=== PATIENT | female | born 1990 | race Hispanic/Latino ===

== ENCOUNTER 2021-09-10 19:08 | Emergency (ER) | payer SELFPAY ==
[2021-09-10 19:22] VITALS: BP 133/68; PULSE 70; RESP 18; TEMP 36.6; O2SAT 99; BMI 29.1
--- NOTE | 2021-09-10 19:22 | DI.RAD.S_ITS ---
PROCEDURE: XR KNEE LT 3V INDICATIONS: fall TECHNIQUE: 3 views of the knee were acquired. COMPARISON: None. FINDINGS: Bones: No fractures or dislocations. No suspicious bony lesions. Soft tissues: No joint effusion. No suspicious soft tissue calcifications. IMPRESSION: No fracture. No osseous lesion. If symptoms and/or clinical suspicion for pathology persists, further assessment with repeat radiographs (7-10 days) or advanced imaging (e.g. CT, MRI or bone scan) should be considered. Dictated by: Carol Hgaer MD, PhD on 09/10/2021 at 19:51 Approved by: Carol Hager MD, PhD on 09/10/2021 at 19:52
--- NOTE | 2021-09-10 20:00 | ED.LOWEXIN ---
HPI - Extremity Injury (Lower) <Jabari Patel PA-C - Last Filed: 09/10/21 20:21> General Chief Complaint: Extremity Injury, Lower Stated Complaint: fell on left knee cant walk Time Seen by Provider: 09/10/21 19:13 Source: patient Mode of arrival: Wheelchair History of Present Illness HPI Narrative: Patient is a 30-year-old female presents to the emergency department today for evaluation of the left knee injury. Patient states that she was walking in her yard when she slipped on wet grass 2 nights ago. She states that she has experienced consistent left knee pain since the injury, noting that it is gradually worsened over past 48 hours. She explains that she has had difficulty putting any weight on the left lower extremity and reports that the left knee feels ?unstable?. Of note, patient states she did not hit her head or lose consciousness as result of the fall. Additionally, she denies injury or pain elsewhere. No fever, chills, chest pain, cough, shortness of breath, nausea, vomiting, diarrhea, dysuria, hematuria, abdominal pain, or any other concerning symptoms reported. No further concerns were voiced at this time. Related Data Previous Rx's Medication Instructions Recorded oxycodone 5 mg tablet 5 mg PO Q8H PRN #10 tab 09/10/21 Allergies Allergy/AdvReac Type Severity Reaction Status Date / Time ibuprofen AdvReac Verified 09/10/21 19:25 Review of Systems <Jabari Patel PA-C - Last Filed: 09/10/21 20:21> Constitutional Constitutional: Denies chills, Denies fatigue, Denies fever(s), Denies frequent falls, Denies lethargy and Denies weakness ENT Ears, Nose, Mouth, and Throat: Denies neck pain Cardiovascular Cardiovascular: Denies chest pain, Denies irregular heart rhythm, Denies lightheadedness, Denies palpitations, Denies dyspnea, Denies dyspnea on exertion and Denies orthopnea Respiratory Respiratory: Denies cough, Denies dyspnea, Denies dyspnea on exertion and Denies wheezing Gastrointestinal Gastrointestinal: Denies abdominal pain, Denies change in bowel habits, Denies diarrhea, Denies nausea and Denies vomiting Genitourinary Genitourinary: Denies hematuria, Denies flank pain, Denies urinary incontinence and Denies urinary urgency Musculoskeletal Musculoskeletal: Denies back pain, Reports arthralgias (Left knee), Reports joint swelling (Left knee), Denies muscle weakness, Denies neck pain, Denies numbness and Denies tingling Integumentary/Breasts Skin/Breast: Denies pruritus, Denies erythema, Denies rash and Denies wounds Neurologic Neurologic: Denies frequent falls, Denies numbness, Denies tingling and Denies weakness Endocrine Endocrine: Denies fatigue and Denies palpitations Allergic/Immunologic Allergic/Immunologic: Denies wheezing Patient History <Jabari Patel PA-C - Last Filed: 09/10/21 20:21> Social History Smoking Status: Never smoker Smoking Status: Never smoker alcohol intake frequency: a few times a week Substance Use Type: marijuana Exam <Jabari Patel PA-C - Last Filed: 09/10/21 20:21> Narrative Exam Narrative: GENERAL: 30 year old patient appears stated age. Well-developed patient, in no acute distress. HEAD: Atraumatic. Normocephalic. EYES: Pupils equal round and reactive. Extraocular motions intact. No scleral icterus. No injection or drainage. ENT: Nose without bleeding, purulent drainage. Throat without erythema, tonsillar hypertrophy or exudate. Airway patent. NECK: Trachea midline. Non tender CARDIOVASCULAR: Regular rate and rhythm without murmurs, gallops, or rubs. RESPIRATORY: Clear to auscultation. Breath sounds equal bilaterally. No wheezes, rales, or rhonchi. GASTROINTESTINAL: Abdomen soft, non-tender, nondistended. EXTREMITIES: No edema. Tenderness to palpation appreciated generally about the left knee with significant midline joint tenderness. No crepitance or gross deformity appreciated. Negative anterior and posterior drawer. Negative Du test. No significant popliteal fullness. Good sensation light touch appreciated throughout the bilateral lower extremities. Gross motor function intact throughout the bilateral lower extremities. BACK: Nontender without deformity or crepitance. No flank tenderness. NEURO: AOx3. SKIN: No rash or erythema of visible areas Initial Vital Signs Initial Vital Signs: Vital Signs Temperature 98 F 09/10/21 19:22 Pulse Rate 70 09/10/21 19:22 Respiratory Rate 18 09/10/21 19:22 Blood Pressure 133/68 09/10/21 19:22 Pulse Oximetry 99 09/10/21 19:22 <DO Eriberto Bhat Last Filed: 09/10/21 21:01> Initial Vital Signs Initial Vital Signs: Vital Signs Temperature 98 F 09/10/21 19:22 Pulse Rate 70 09/10/21 19:22 Respiratory Rate 18 09/10/21 19:22 Blood Pressure 133/68 09/10/21 19:22 Pulse Oximetry 99 09/10/21 19:22 Course <Jabari Patel PA-C - Last Filed: 09/10/21 20:21> Course Course Narrative: X-ray of left knee obtained. Orders Ordered: ED Orders 09/10/21 19:22 XR knee LT 3V Stat Discontinued Medications Oxycodone HCl (Oxycodone Ir 5 Mg Tablet) 5 mg PO NOW ONE Stop: 09/10/21 20:01 Last Admin: 09/10/21 20:35 Dose: 5 mg Documented by: CASSIUS Vital Signs Vital signs: Vital Signs - 8 hr 09/10/21 19:22 Temperature 98 F Pulse Rate 70 Respiratory Rate 18 Blood Pressure 133/68 Pulse Oximetry 99 <DO Eriberto Bhat Last Filed: 09/10/21 21:01> Orders Ordered: ED Orders 09/10/21 19:22 XR knee LT 3V Stat Discontinued Medications Oxycodone HCl (Oxycodone Ir 5 Mg Tablet) 5 mg PO NOW ONE Stop: 09/10/21 20:01 Last Admin: 09/10/21 20:35 Dose: 5 mg Documented by: CASSIUS Vital Signs Vital signs: Vital Signs - 8 hr 09/10/21 19:22 Temperature 98 F Pulse Rate 70 Respiratory Rate 18 Blood Pressure 133/68 Pulse Oximetry 99 MDM - Extremity Injury (Lower) <CHARLEY Dee Last Filed: 09/10/21 20:21> Imaging Data Extremity x-ray #1: Radiologist's Impression: ROCEDURE:? XR KNEE LT 3V ? INDICATIONS:? fall ? TECHNIQUE:? 3 views of the knee were acquired.? ? COMPARISON:? None. ? FINDINGS:? ? Bones:? No fractures or dislocations.? No suspicious bony lesions.? ? Soft tissues:? No joint effusion.? No suspicious soft tissue calcifications.? ? ? IMPRESSION:? No fracture. No osseous lesion. If symptoms and/or clinical suspicion for pathology persists, further assessment with repeat radiographs (7-10 days) or advanced imaging (e.g. CT, MRI or bone scan) should be considered. ? ? Dictated by: Carol Hager MD, PhD on 09/10/2021 at 19:51 ? ? Approved by: Carol Hager MD, PhD on 09/10/2021 at 19:52? MDM Narrative Medical decision making narrative: Differential diagnosis to consider but not limited to fracture versus dislocation versus sprain versus strain. X-ray results left knee obtained the emergency department today showed no signs of acute bony abnormality. I discussed these results with the patient informed her that it is important to follow-up with orthopedic surgery for further evaluation and imaging of the left knee. She was placed in a knee immobilizer prior to discharge and was provided a short course of medications help alleviate her discomfort. Patient expresses understanding and agrees to plan. She states at this time she is comfortable being discharged home is stable for discharge. Strict return precautions were discussed with the patient prior to discharge. Discharge Plan Departure Patient Disposition: Home Clinical Impression: Acute pain of left knee Instructions: DI for Knee Pain Activity Restrictions/Additional Instructions: *You have been diagnosed with left knee pain *What to do: *Please continue to take your regular medications as directed. [ ] New medication prescriptions sent to your pharmacy: [ ] [X] New medication written as a paper prescription - Oxycodone [ ] No new medications given You were evaluated in the emergency department today for a left knee injury. X-ray imaging obtained in the emergency department today did not show signs of acute bony abnormality. Have set up a referral free to follow-up with training specialist further evaluation of your left knee injury. Further imaging may be necessary in order to identify any soft tissue damage. I have prescribed you a short course of medications to help alleviate your discomfort, please use them only for severe pain. Please follow-up with the primary care provider within the next to 3 days for further evaluation. You were placed in a knee immobilizer prior to discharge to help stabilize the knee and provide additional comfort. Do not hesitate to return to the emergency department if you experience worsening pain, numbness and tingling in the lower extremities, fever, or any other concerning symptoms. *Please follow up with your primary care provider in 2-3 days, call for an appointment. Let them know you were seen in the Emergency Department and that we ask that you be seen in follow up. We will electronically transmit a record of today's note if your PCP is in our system *If you do not have a primary care provider please contact the [facility] Resource line at [phone]. They will ask some questions about your medical history and help get you set up with a doctor in the community. *Return to Emergency Department if you should have any new, worsening or concerning symptoms, such as fever greater than 101 F, shaking chills, worsening pain, persistent vomiting or other bothersome symptoms. Prescriptions: New oxycodone 5 mg tablet 5 mg PO Q8H PRN (Reason: pain) Qty: 10 0RF Referrals: Bina Isaac MD [Physician] - 5-7 days <Amilcar Morales DO - Last Filed: 09/10/21 21:01> [facility]: Dr Morales Co-Sign Statement: I was available for consultation during this patient's emergency department visit. This chart is signed by myself for administrative purposes only. I did not have direct contact with this patient during this visit. They were seen independently by the APC.
[2021-09-10] MEDS: OXYCODONE IR 5 MG TABLET PO (20:35)
== END 2021-09-10 20:52 | disposition home or self-care (01) ==
PROVIDERS: Emergency Provider Physician Assistant
DX: M25.562 Pain in left knee (principal)
CPT/HCPCS: 29530; 73562; 99283

== ENCOUNTER 2024-04-17 09:48 | Emergency (ER) | payer BC, SELFPAY ==
[2024-04-17 09:49] VITALS: BP 167/85; PULSE 70; RESP 16; TEMP 36.7; O2SAT 97; BMI 29.9
--- NOTE | 2024-04-17 09:59 | DI.US.S_ITS ---
PROCEDURE: US OB <= 14 WEEKS FETUS INDICATIONS: ABDOMEN/PELVIC PAIN OUTSIDE/PRIOR DATING DATA: Last menstrual period (LMP): 03/11/2024. LMP-based estimated date of delivery (ELIAN): 12/16/2024. First dating scan (date and location): 04/17/2024. Estimated date of delivery (ELIAN) from first dating scan: Not applicable TECHNIQUE: Real-time scanning was performed of the fetus and maternal pelvic organs, with image documentation. Endovaginal scanning was also performed to better visualize the fetus and maternal ovaries. COMPARISON: None. FINDINGS: An intrauterine gestational sac is identified with a mean sac diameter of 0.5 cm for an estimated gestational age of 5 weeks and 2 days. There is nonvisualization of a yolk sac , pole, or cardiac activity at this time. Small perigestational hemorrhage. The left ovary is within normal limits. Probable 1.7 cm right corpus luteal cyst. Small amount of free fluid around the right adnexal region. IMPRESSION: 1. Findings likely indicative of an early, intrauterine with an estimated gestational age of 5 weeks and 2 days. Continued pelvic ultrasound and beta hCG measurement follow-up recommended. 2. Small right 1.7 cm corpus luteal ovarian cyst. We strive to produce accurate, complete, and clear reports of imaging services. To assist us in improving patient care, this report was composed using standard report templates and voice recognition software. Therefore, it may contain abnormal punctuation, insertions and/or omissions. Occasional wrong-word or sound-alike substitutions may occur. Though we review the report and make efforts to correct it, we do recommend that the report be read carefully in proper context to recognize any text inaccuracies. Dictated by: Hua Ponce M.D. on 04/17/2024 at 11:10 Approved by: Hua Ponce M.D. on 04/17/2024 at 11:18
--- NOTE | 2024-04-17 10:05 | ED_ITS ---
HPI - Abdominal Pain General Chief Complaint: Abdominal Pain Stated Complaint: , abd sharp pain Time Seen by Provider: 04/17/24 10:02 Source: patient Mode of arrival: Ambulatory History of Present Illness HPI narrative: 33-year-old female SAb0 obstetrical history, with last menstrual period 03/11/2024, recent home test positive, he has not had care this current , now with diffuse abdominal pain, not particularly low, not particularly right versus left, since early this morning. She has had difficulty was with bowel movement, using ozfv-pfd-jfwewkw powder medication laxative, last bowel movement yesterday, no black or red stools, no hard stools. She has not having vaginal bleeding. She has not had passage of tissue. She has not having painful urination or frequency of urination. No flank pain. No cough shortness of breath. No injury trauma new activities. She has not had imaging this Related Data Previous Rx's Medication Instructions Recorded oxycodone 5 mg tablet 5 mg PO Q8H PRN pain #10 tabs 09/10/21 Allergies Allergy/AdvReac Type Severity Reaction Status Date / Time ibuprofen AdvReac Verified 04/17/24 09:56 Review of Systems Review of Systems Narrative: see HPI Patient History Social History Smoking Status: Never smoker Smoking Status: Never smoker alcohol intake frequency: a few times a week Substance Use Type: marijuana Exam Narrative Exam Narrative: GENERAL: Well-developed patient, in mild distress. HEAD: Atraumatic. Normocephalic. EYES: Pupils equal round and reactive. Extraocular motions intact. No scleral icterus. No injection or drainage. ENT: Nose without bleeding, purulent drainage. Throat without erythema, tonsillar hypertrophy or exudate. Airway patent. NECK: Trachea midline. Non tender CARDIOVASCULAR: Regular rate and rhythm without murmurs, gallops, or rubs. RESPIRATORY: Clear to auscultation. Breath sounds equal bilaterally. No wheezes, rales, or rhonchi. GASTROINTESTINAL: Abdomen soft, non-tender, nondistended. EXTREMITIES: No edema or joint tenderness. BACK: Nontender without deformity or crepitance. No flank tenderness. NEURO: AOx3. Motor functions grossly nonfocal SKIN: No rash or erythema of visible areas Initial Vital Signs Initial Vital Signs: Vital Signs Temperature 98.0 F 04/17/24 09:49 Pulse Rate 70 04/17/24 09:49 Respiratory Rate 16 04/17/24 09:49 Blood Pressure 167/85 H 04/17/24 09:49 Pulse Oximetry 97 04/17/24 09:49 Oxygen Delivery Method Room Air 04/17/24 09:49 Course Orders Ordered: ED Orders 04/17/24 09:59 US OB <= 14 weeks fetus Stat 04/17/24 10:11 Complete Blood Count AUTO DIFF Stat Comprehensive Metabolic Panel Stat HCG Quantitative /Beta subunit Stat Type and Screen Stat Vital Signs Vital signs: Vital Signs - 8 hr 04/17/24 09:49 Temperature 98.0 F Pulse Rate 70 Respiratory Rate 16 Blood Pressure 167/85 H Pulse Oximetry 97 Oxygen Delivery Method Room Air MDM - Abdominal Pain Lab Data Attestation: I reviewed the patient's lab results. 04/17/24 10:11 04/17/24 10:11 Labs: Lab Results 04/17/24 Range/Units 10:11 WBC 11.6 H (4.5-11.0) X10^3/uL RBC 4.41 (4.0-5.2) X10^6/uL Hgb 13.7 (12.0-16.0) g/dL Hct 40.4 (36-46) % MCV 91.6 (80-100) fL MCH 31.2 (26-34) PG MCHC 34.0 (30-36) % RDW 12.7 (11.6-14.8) % Plt Count 304 (150-400) X10^3/uL Neut % (Auto) 77.1 H (50-75) % Lymph % (Auto) 16.5 L (25-40) % [place] % (Auto) 5.0 (3-14) % Eos % (Auto) 1.0 L (2-4) % Baso % (Auto) 0.4 (0-2) % Neut # (Auto) 9000 H (3195-5954) /uL Lymph # (Auto) 1900 (9704-0675) /uL [place] # (Auto) 600 (0-900) /uL Eos # (Auto) 100 (0-450) /uL Baso # (Auto) 0 (0-100) /uL Sodium 133 L (137-145) mmol/L Potassium 3.9 (3.4-5.1) mmol/L Chloride 103 (98-107) mmol/L Carbon Dioxide 23 (22-32) mmol/L BUN 7 (7-17) mg/dL Creatinine 0.57 (0.52-1.04) mg/dL Estimated GFR > 60 (>60) mL/min BUN/Creatinine Ratio 12.3 (6-22) Glucose 186 H (70-100) mg/dL Calcium 9.2 (8.4-10.2) mg/dL Total Bilirubin 0.8 (0.2-1.3) mg/dL AST 46 H (14-36) IU/L ALT 55 H (<35) IU/L Alkaline Phosphatase 76 (38-126) U/L Total Protein 7.0 (6.3-8.2) g/dL Albumin 4.3 (3.5-5.0) g/dL Globulin 2.7 (1.7-4.1) g/dL Albumin/Globulin Ratio 1.6 (1.0-2.8) HCG, Quant 3245.9 mIU/mL Blood Type O Positive Antibody Screen Negative Point of care testing: Point of Care Testing Test Results Positive Urine Dip Bedside Urine Glucose 500 mg/dl Bedside Urine Bilirubin - Negative Bedside Urine Ketone - Negative Urine Specific [place] 1.020 Bedside Urine Occult Blood - Negative Bedside Urine pH 6.0 Bedside Urine Protein - Negative Bedside Urine Urobilinogen - Negative Bedside Urine Nitrite - Negative Bedside Urine Leukocytes - Negative Esterase Imaging Data Pelvic ultrasound: Radiologist's Impression: [address] [address] Ultrasound Report Signed Patient: Yin Cooley MR#: [id number] : 1990 Acct:[id number] Age/Sex: 33 / F Date of Service: 04/17/24 Loc: ED Accession Number: [id number] Procedure: US OB <= 14 weeks fetus Ordering Provider: Rustam Reis MD PROCEDURE: US OB <= 14 WEEKS FETUS INDICATIONS: ABDOMEN/PELVIC PAIN OUTSIDE/PRIOR DATING DATA: Last menstrual period (LMP): 03/11/2024. LMP-based estimated date of delivery (ELIAN): 12/16/2024. First dating scan (date and location): 04/17/2024. Estimated date of delivery (ELIAN) from first dating scan: Not applicable TECHNIQUE: Real-time scanning was performed of the fetus and maternal pelvic organs, with image documentation. Endovaginal scanning was also performed to better visualize the fetus and maternal ovaries. COMPARISON: None. FINDINGS: An intrauterine gestational sac is identified with a mean sac diameter of 0.5 cm for an estimated gestational age of 5 weeks and 2 days. There is nonvisualization of a yolk sac , pole, or cardiac activity at this time. Small perigestational hemorrhage. The left ovary is within normal limits. Probable 1.7 cm right corpus luteal cyst. Small amount of free fluid around the right adnexal region. IMPRESSION: 1. Findings likely indicative of an early, intrauterine with an estimated gestational age of 5 weeks and 2 days. Continued pelvic ultrasound and beta hCG measurement follow-up recommended. 2. Small right 1.7 cm corpus luteal ovarian cyst. We strive to produce accurate, complete, and clear reports of imaging services. To assist us in improving patient care, this report was composed using standard report templates and voice recognition software. Therefore, it may contain abnormal punctuation, insertions and/or omissions. Occasional wrong-word or sound-alike substitutions may occur. Though we review the report and make efforts to correct it, we do recommend that the report be read carefully in proper context to recognize any text inaccuracies. Dictated by: Hua Ponce M.D. on 04/17/2024 at 11:10 Approved by: Hua Ponce M.D. on 04/17/2024 at 11:18 MDM Narrative Medical decision making narrative: 33-year-old female with home test positive, possible early with diffuse abdominal pain, no external vaginal bleeding. DDx consider ectopic , ovarian cyst, PID, TOA, UTI, non-hand meat salter related pain such as constipation, other. Urine test was positive, we order serum hCG quantitative, also ABO/Rh. Urine dip negative for blood/leukocytes. Ultrasound pelvis requested. Keep NPO for now. Patient appears comfortable, no pad medications needed at this time. Serum hCG 3245 noted. Blood type O positive Ultrasound shows intrauterine 5 weeks gestational sac, some inflammation/hemorrhage surrounding, possible implantation changes versus other, sono tech report. Possible right corpus luteum cyst, otherwise no abnormal masses, scant free fluid. Await Radiology report. Patient informed of preliminary information. Pelvic ultrasound radiology reading, also confirms intrauterine gestational sac 5 weeks 2 days size, small right 1.7 cm corpus luteal ovarian cyst also noted. See radiology report. Radiology report discussed with patient, possible component pain by constipation symptoms as described, consider prunes/juice more natural methods of treating this. It is possible that the ovarian corpus luteum cyst could be a cause of some discomfort, not obviously ruptured or bleeding, no torsion found. Advised recheck Sunday for repeat hormone level, which hopefully we will be increasing in reassuring. Take Tylenol as needed for discomfort. Contact information given for OB provider on-call Dr. Gilbert. Return precautions discussed. Home with family. Discharge Plan Departure Patient Disposition: Home Clinical Impression: Abdominal pain, Constipation, , Ovarian cyst Activity Restrictions/Additional Instructions: Current early , last menstrual period 03/11/2024, home test positive, reconfirmed positive today as well, with abdominal pain, symptoms suspicious for constipation, possible use of powder rrll-qoc-[id number] laxative, last bowel movement yesterday. No vaginal bleeding symptoms. No imaging yet this before arrival. Ultrasound showed intrauterine gestational sac, small corpus luteal cyst in 1 of the ovaries also noted. It is possible you have an early , is also possible to have a early demise, unclear at this stage. Sometimes repeat hormone levels in the next 48-72 hours can help distinguish, as the hormone levels at this stage of usually double in this timeframe. Consider repeat blood draw Sunday with your care provider. Local funeral home manager contact information also provided. Small right ovarian corpus luteum cyst also noted on your ultrasound, this is fairly small, was not obviously bleeding or involuting, unclear if this is related to your current discomfort, although sometimes ovarian cysts can be painful. There was good blood flow to both ovaries on the ultrasound study. It is very possible you happened to have an early and unrelated abdominal pain, perhaps due to constipation. I do not know safety profile of dywy-zov-khgkuhu powder laxative medication in . Consider more natural use like prune juice or prunes to move your bowels if you can tolerate this. Follow up with your obstetrics provider Sunday for further testing. Return to this/nearest emergency department for any change worsening symptoms or any concerns prior Prescriptions: No Action oxycodone 5 mg tablet 5 mg PO Q8H PRN (Reason: pain) Qty: 10 0RF Referrals: Kole Gilbert MD [Physician] - Stand Alone Forms: Patient Portal/API
[2024-04-17 10:22] LABS: Add Manual Diff / Slide Review NO; Basophils Absolute Auto 0 /uL (0-100); Basophils Percent Auto 0.4 % (0-2); Eosinophils Absolute Auto 100 /uL (0-450); Hematocrit 40.4 % (36-46); Hemoglobin 13.7 g/dL (12.0-16.0); Lymphocytes Absolute Auto 1900 /uL (1100-4500); Lymphocytes Percent Auto 16.5 % (25-40); Mean Corpuscular Hemoglobin 31.2 PG (26-34); Mean Corpuscular Volume 91.6 fL (80-100); Monocytes Absolute Auto 600 /uL (0-900); Neutrophils Absolute Auto 9000 /uL (1500-7000); Neutrophils Percent Auto 77.1 % (50-75); Platelet Count 304 X10^3/uL (150-400); Red Blood Cell Count 4.41 X10^6/uL (4.0-5.2); Red Cell Distribution Width 12.7 % (11.6-14.8); White Blood Cell Count 11.6 X10^3/uL (4.5-11.0)
[2024-04-17 10:41] LABS: Alanine Aminotransferase 55 IU/L (<35); Albumin 4.3 g/dL (3.5-5.0); Albumin Globulin Ratio 1.6 (1.0-2.8); Alkaline Phosphatase 76 U/L (38-126); Aspartate Aminotransferase 46 IU/L (14-36); BUN Creatinine Ratio 12.3 (6-22); Bilirubin Total 0.8 mg/dL (0.2-1.3); Blood Urea Nitrogen 7 mg/dL (7-17); Calcium 9.2 mg/dL (8.4-10.2); Carbon Dioxide 23 mmol/L (22-32); Chloride 103 mmol/L (98-107); Estimated Glomerular Filt Rate > 60 mL/min (>60); Globulin 2.7 g/dL (1.7-4.1); Glucose 186 mg/dL (70-100); HEMOLYSIS < 15 (0-50); Potassium 3.9 mmol/L (3.4-5.1); Sodium 133 mmol/L (137-145)
[2024-04-17 10:58] LABS: HCG Quantitative /Beta subunit 3245.9 mIU/mL
[2024-04-17 12:24] VITALS: BP 127/62; PULSE 61; RESP 16; O2SAT 98
[2024-04-17 12:41] VITALS: BP 122/65
== END 2024-04-17 12:42 | disposition home or self-care (01) ==
PROVIDERS: Emergency Provider Emergency Medicine
DX: O34.81 Maternal care for other abnormalities of pelvic organs, first trimester (principal); N83.11 Corpus luteum cyst of right ovary; R10.9 Unspecified abdominal pain; K59.00 Constipation, unspecified; Z3A.01 Less than 8 weeks gestation of pregnancy
CPT/HCPCS: 36415; 76801; 76817; 80053; 81003; 81025; 84702; 85025; 86850; 86900; 86901; 99283; 99284

== ENCOUNTER → 2024-04-25 12:00 | Outpatient (CLI) | payer BC, SELFPAY ==
--- NOTE | 2024-04-25 12:01 | DI.US.S_ITS ---
PROCEDURE: US OB <= 14 WEEKS FETUS INDICATIONS: VIABILITY FOLLOW UP OUTSIDE/PRIOR DATING DATA: Last menstrual period (LMP): 03/11/24. LMP-based estimated date of delivery (ELIAN): 12/16/24. First dating scan (date and location): 04/25/24. Estimated date of delivery (ELIAN) from first dating scan: 12/19/24. TECHNIQUE: Real-time scanning was performed of the fetus and maternal pelvic organs, with image documentation. Endovaginal imaging was performed. COMPARISON: [facility], OB <= 14 WEEKS FETUS, 04/17/2024, 9:59. FINDINGS: An intrauterine is present including a single pole with an average crown-rump length of 3.6 mm corresponding to a six week 0 day plus or minus four day gestation. There is detectable cardiac activity in the fetus at a rate of 114 beats per minute. A normal yolk sac is present. A small irregular implantation bleed encompassing less than 10% of the sac circumference measures up to 1.3 cm in maximal diameter. No other significant perigestational fluid collection. The maternal uterus is anteverted. The cervix is closed. There is no pathologic free pelvic fluid. There is a peripherally vascular corpus luteum on the right ovary. IMPRESSION: Single living intrauterine with sonographic gestational age of six weeks 0 days plus or minus four days, in good agreement with the clinical gestational age. Trace, presumably resolving subchorionic hemorrhage/implantation bleed. We strive to produce accurate, complete, and clear reports of imaging services. To assist us in improving patient care, this report was composed using standard report templates and voice recognition software. Therefore, it may contain abnormal punctuation, insertions and/or omissions. Occasional wrong-word or sound-alike substitutions may occur. Though we review the report and make efforts to correct it, we do recommend that the report be read carefully in proper context to recognize any text inaccuracies. Dictated by: Sabrina Quintana M.D. on 04/25/2024 at 15:36 Approved by: Sabrina Quintana M.D. on 04/25/2024 at 16:06
[2024-04-25 15:18] LABS: HCG Quantitative /Beta subunit 14967 mIU/mL
== END ==
PROVIDERS: Referring Provider Obstetrics & Gynecology; Visit Provider Obstetrics & Gynecology
DX: O20.0 Threatened abortion (principal)
CPT/HCPCS: 36415; 76801; 76817; 84702

== ENCOUNTER → 2024-06-12 15:50 | Outpatient (CLI) | payer BC, OTHER, MEDICAID, SELFPAY ==
[2024-06-12 21:52] LABS: Urine N gonorrhoeae NOT DETECTED
[2024-06-12 22:24] LABS: Urine Chlamydia NOT DETECTED
== END ==
PROVIDERS: Visit Provider Obstetrics & Gynecology
DX: Z11.3 Encounter for screening for infections with a predominantly sexual mode of transmission (principal)
CPT/HCPCS: 87491; 87591

== ENCOUNTER → 2024-06-12 16:09 | Outpatient (CLI) | payer BC, OTHER, MEDICAID, SELFPAY ==
[2024-06-12 16:47] LABS: Add Manual Diff / Slide Review NO; Basophils Absolute Auto 100 /uL (0-100); Basophils Percent Auto 0.5 % (0-2); Eosinophils Absolute Auto 100 /uL (0-450); Eosinophils Percent Auto 0.7 % (2-4); Hematocrit 39.7 % (36-46); Hemoglobin 13.5 g/dL (12.0-16.0); Lymphocytes Absolute Auto 2000 /uL (1100-4500); Lymphocytes Percent Auto 16.6 % (25-40); Mean Corpuscular Hemoglobin 30.9 PG (26-34); Mean Corpuscular Volume 90.7 fL (80-100); Monocytes Absolute Auto 500 /uL (0-900); Monocytes Percent Auto 4.1 % (3-14); Neutrophils Absolute Auto 9300 /uL (1500-7000); Neutrophils Percent Auto 78.1 % (50-75); Platelet Count 302 X10^3/uL (150-400); Red Blood Cell Count 4.37 X10^6/uL (4.0-5.2); Red Cell Distribution Width 12.7 % (11.6-14.8); White Blood Cell Count 11.9 X10^3/uL (4.5-11.0)
[2024-06-12 17:25] LABS: Natera Collection Specimen Collected
[2024-06-12 17:53] LABS: Hepatitis B Surface Antigen NEGATIVE s/c (NEGATIVE); Rubella Antibody IgG 53.1 IU/mL (>15)
[2024-06-12 18:13] LABS: HIV 1 & 2 Ab/Ag 4th Gen Combo NEGATIVE (NEGATIVE); Hep C Virus Ab w/Reflex Quant NEGATIVE s/c (NEGATIVE)
[2024-06-14 03:11] LABS: RPR Screen Non Reactive (Non Reactive)
[2024-06-14 08:41] LABS: Varicella IgG Antibody Reactive (Non Reactive)
== END ==
PROVIDERS: Referring Provider Obstetrics & Gynecology; Visit Provider Obstetrics & Gynecology
DX: Z34.80 Encounter for supervision of other normal pregnancy, unspecified trimester (principal); Z36.0 Encounter for antenatal screening for chromosomal anomalies; Z11.3 Encounter for screening for infections with a predominantly sexual mode of transmission
CPT/HCPCS: 36415; 80055; 86787; 86803; 86850; 86900; 86901; 87086; 87389; 87491; 87591

== ENCOUNTER → 2024-07-10 14:46 | Outpatient (CLI) | payer BC, OTHER, MEDICAID, SELFPAY ==
[2024-07-15 19:07] LABS: AFP Value 35.3 ng/mL (.); Gest Age on Col Date 17.3 weeks (.); Insulin Dep Diabetes No (.); OSBR Risk 1IN 10000 (.); Results Report (.); Test Results *Screen Negative* (.)
== END ==
PROVIDERS: Referring Provider Obstetrics & Gynecology; Visit Provider Obstetrics & Gynecology
DX: Z36.0 Encounter for antenatal screening for chromosomal anomalies (principal)
CPT/HCPCS: 82105

== ENCOUNTER → 2024-08-04 15:13 | Outpatient (CLI) | payer BC, OTHER, MEDICAID, SELFPAY ==
--- NOTE | 2024-08-04 15:14 | DI.US.S_ITS ---
PROCEDURE: US OB >= 14 WEEKS FETUS INDICATIONS: 20 week anatomy OUTSIDE/PRIOR DATING DATA: Last menstrual period (LMP): 03/11/2024. LMP-based estimated date of delivery (ELIAN): 12/16/2024. First dating scan (date and location): Unknown. Estimated date of delivery (ELIAN) from first dating scan: Unknown. The calculations are made using the clinical ELIAN of 12/16/2024. TECHNIQUE: Real-time scanning was performed of the fetus, with image documentation and biometric measurements. COMPARISON: [facility], OB <= 14 WEEKS FETUS, 04/25/2024, 12:29. FINDINGS: General: A single living intrauterine gestation is present. Presentation: Transverse. Placenta: Placental position is anterior , without previa. Amniotic fluid index: 15.2 cm, normal range is 5-24 cm. Single deepest vertical pocket is 4.4 cm. heart rate: 152 beats per minute. Maternal cervical canal: 3.3 cm long. Normal lower limit is 2.5 cm. biometrics: Biparietal diameter: 4.9 cm 20 weeks 5 days Head circumference: 18.1 cm 20 weeks 3 days Abdominal circumference: 15.6 cm 20 weeks 5 days Femur length: 3.4 cm 20 weeks 6 days Clinically estimated gestational age: 20 weeks 6 days Composite gestational age from present scan: 20 weeks 5 days Estimated weight and percentile: 376 g 40th percentile Anatomic survey: Neuro: Ventricles are non-dilated at less than 10 mm. Cisterna magna is normal at 3-11 mm. Cerebellum is normal in size and morphology. Nuchal skin fold: Normal at less than 6 mm between 14-21 weeks gestational age. Face: Nose and lips, facial profile are normal. Spine: No evidence for spina bifida. Heart: 4-chambered heart is present, with normal ventricular outflow tracts. Diaphragm: Diaphragm is intact. Stomach: Left-sided stomach is present. Kidneys: No hydronephrosis. Normal is less than 5 mm in 2nd trimester, less than 7 mm in 3rd trimester. Cord: 3-vessel cord has orthotopic insertion. Bladder: Normal in size. Extremities: All 4 extremities identified. IMPRESSION: Single live intrauterine with gestational age of 20 weeks 5 days. Anatomy is within normal limits. We strive to produce accurate, complete, and clear reports of imaging services. To assist us in improving patient care, this report was composed using standard report templates and voice recognition software. Therefore, it may contain abnormal punctuation, insertions and/or omissions. Occasional wrong-word or sound-alike substitutions may occur. Though we review the report and make efforts to correct it, we do recommend that the report be read carefully in proper context to recognize any text inaccuracies. Dictated by: Babs Egan M.D. on 08/05/2024 at 9:59 Approved by: Babs Egan M.D. on 08/05/2024 at 10:01
== END ==
PROVIDERS: Referring Provider Obstetrics & Gynecology; Visit Provider Obstetrics & Gynecology
DX: Z34.02 Encounter for supervision of normal first pregnancy, second trimester (principal); Z3A.20 20 weeks gestation of pregnancy
CPT/HCPCS: 76811

== ENCOUNTER → 2024-08-21 12:29 | Outpatient (CLI) | payer BC, OTHER, SELFPAY ==
[2024-08-21 14:28] LABS: Hematocrit 37.4 % (36-46); Hemoglobin 12.6 g/dL (12.0-16.0)
[2024-08-21 14:50] LABS: GTT (PREG) 1 Hour PP 50gm Dose 228 mg/dL (76-139)
== END ==
PROVIDERS: Referring Provider Obstetrics & Gynecology; Visit Provider Obstetrics & Gynecology
DX: Z13.0 Encounter for screening for diseases of the blood and blood-forming organs and certain disorders involving the immune mechanism (principal); Z13.1 Encounter for screening for diabetes mellitus
CPT/HCPCS: 36415; 82950; 85014; 85018

== ENCOUNTER → 2024-08-26 09:56 | Outpatient (CLI) | payer BC, OTHER, SELFPAY ==
[2024-08-26 11:25] LABS: Glucose Fasting Gestational 115 mg/dL (76-95)
[2024-08-26 12:51] LABS: Glucose 1 Hour Gest 224 mg/dL (76-180)
[2024-08-26 13:56] LABS: Glucose 2 Hour Gest 228 mg/dL (76-155)
[2024-08-27 03:11] LABS: Glucose Tol Interp,Gestational INTERPRETATION
[2024-08-27 03:19] LABS: Glucose 3 Hour Gest 177 mg/dL (76-140)
== END ==
PROVIDERS: Referring Provider Obstetrics & Gynecology; Visit Provider Obstetrics & Gynecology
DX: R73.09 Other abnormal glucose (principal)
CPT/HCPCS: 36415; 82951; 82952

== ENCOUNTER → 2024-09-11 16:27 | Outpatient (CLI) | payer BC, OTHER, SELFPAY ==
--- NOTE | 2024-09-12 15:36 | DIAB.GDA ---
Addendum entered by Helen Lopez 09/16/24 12:05: Phone call today: started Meal time TID at 10-15u. Did not have NPH yet, pharmacy filling and plans to excelsior picker today. Did excelsior picker Dexcom G7 sensors. Will help her replace sample CGM this week. BG review indicates pretty consistent elevated FBG and pc readings. Anticipate improvement with start of NPH. F/u in two days. Original Note: Initial Gestational Diabetes Assessment Name: Yin Cooley Date: 09/11/24 Time: 430-6p Dx: Gestational Diabetes Provider: Vladimir ELIAN: 12/16/2024 Weeks: 26 Yin presents for initial GDM visit, accompanied by her partner Carlie. No previous GDM dx. Endorses significant T2DM family history with mother, brother, and both sets of grandparents. Reports a lot of cravings, but avoiding eating due to high BG. States she is very hungry. Endorses constipation. Also endorses fear about insulin. States she has had family members from too much insulin or from d/c of insulin after the inability to afford it. Open to wearing CGM. May benefit from insulin pump during . Possible pre gestational DM per OB, though Yin states she did check BG in first trimester with her mother's glucose meter and it was <120mg/dl random BG. EMR indicates an elevated BG of 186mg/dl in 04/2024. Diet Recall: 10-11a: eggs with hot dog, beans x 1/2c, 4 tortillas, veggies, cheese 6p: veggies and protein water x gallon per day milk 8-16oz Cut out soda. Anthropometrics: Ht: 64 Wt: 199# 09/09/24 Prepregnancy wt: 180# Physical Activity: Walks child to/from school. 20 min walk BID. Self-Monitoring Blood Glucose: Checking FBG and 1 hour pc. All significantly elevated. Would benefit from insulin therapy, which OB has already messaged this RD regarding. Date Pre Post Pre Post Pre Post HS 09/10 111 257 210 224 09/11 142 196 Diabetes Medications: None Pertinent Labs: Screen 228mg/dl OGTT: 115 H, 224 H, 228 H, 177 H Nutrition Rx: Carbohydrates: start with 30g at each meal/snack after insulin therapy Meal: 45-g lunch and dinner; 30g breakfast Snack: 15-30g Nutrition Diagnosis: Altered nutrition related lab value r/t GDM dx aeb recent OGTT Inadequate energy intake r/t fear of elevated BG aeb pt report and diet recall Excessive CHO intake r/t nutrition knowledge deficit aeb diet recall and pt report Intervention: This participant was very receptive. Provided appropriate educational handouts. Discussed the following topics: GDM pathophysiology and impact of hyperglycemia on mom and baby Risk for T2DM for mom and baby in the future Ways to reduce risk T2DM Ways to satiate with current BG state Plate Method, meal timing, pairing macronutrients and spreading out CHO for better BG management Blood glucose goals (FBG: <95 and 1 hour <140 mg/dL) CGM education and self placement Insulin injection technique, insulin action and precautions, rule of 15 for lows, Sharps disposal Impact of macronutrients on blood glucose Recommended servings for carbohydrates at meals and snacks Goals: excelsior picker insulin wear CGM Eat protein and veggies when feeling extra hungry at time time Follow-up: KIMBERLY NOVAK follow-up in one week. Will call her Sunday and see her in one week. Helen Lopez RDN, SCARLET Certified Diabetes Care and Scrap Carrier T: [phone] F: [phone] [email or web address] Thank you for this referral
== END ==
LOC: DIET 16:28
PROVIDERS: Referring Provider Obstetrics & Gynecology
DX: O24.419 Gestational diabetes mellitus in pregnancy, unspecified control (principal); Z71.3 Dietary counseling and surveillance; Z83.3 Family history of diabetes mellitus; Z3A.26 26 weeks gestation of pregnancy
CPT/HCPCS: 97802

== ENCOUNTER → 2024-09-18 10:20 | Outpatient (CLI) | payer BC, OTHER, SELFPAY ==
--- NOTE | 2024-09-18 13:30 | DIAB.GDFU ---
Addendum entered by Helen Lopez 09/19/24 14:49: phone call today: started NPH 15u last night due to her being somewhat nervous to take full rx'd dose 25u. Woke up with a low on CGM, but seems to have been a false low due to CGM sensor compression. Checked fingerstick and none were low. Drank juice anyway to treat and BG went up to 159mg/dl. This morning FBG was 93mg/dl (much improved) despite OJ treatment at 1am. Will call in 4 days and f/u 1:1 next week. Original Note: Follow-up Gestational Diabetes Assessment Name: Yin Cooley Date: 09/18/24 Time: 8214-2925 Dx: Gestational Diabetes Provider: Vladimir ELIAN: 12/16/2024 Weeks: 27 Yin presents for GDM visit, accompanied by her partner Carlie. No previous GDM dx. Endorses significant T2DM family history with mother, brother, and both sets of grandparents. Today she bringer her CGM for education and self placement. States she has not started NPH HS insulin yet, but has picked it up. Taking meal time insulin. Unclear about when to take this per report. Taking TID even when not eating. Did experience one low of 65mg/dl. Seems she may have taken Lispro without eating much. Did not use Rule of 15 to correct per report. Has quite a bit of fear regarding lows and insulin. Seems hesitant to start another insulin. We discussed this at length. Also getting 6mm needles for pens, which she reports leaves lima and endorses pain. Diet recall indicates long periods of fasting and larger portions of CHO at breakfast. Diet Recall: : eggs, veggies, 2 tortillas flour, 1c milk, 1 banana sn: nothing or fruit 4-6p: veggies and protein and 1c rice water x gallon per day no sugar beverages naps 11a/12p to 2p Anthropometrics: Ht: 64 Wt: 199# 09/09/24 Prepregnancy wt: 180# Physical Activity: Walks child to/from school. 20 min walk BID. Self-Monitoring Blood Glucose: Wearing CGM sample. Today her partner placed the new personal CGM with guidance. FBG all above 100mg/dl and after meal readings in the 200s per CGM. TIR: 0% very high 42% >140mg/dl 58% in range 0% low avmg/dl std dev: 26mg/dl variation: 18.9% GMI: NA Diabetes Medications: 10-15u Lispro ac 25u NPH--- not started Pertinent Labs: Screen 228mg/dl OGTT: 115 H, 224 H, 228 H, 177 H Nutrition Rx: Carbohydrates: start with 30g at each meal/snack after insulin therapy Meal: 45-g lunch and dinner; 30g breakfast Snack: 15-30g Nutrition Diagnosis: Altered nutrition related lab value r/t GDM dx aeb recent OGTT Excessive CHO intake r/t nutrition knowledge deficit aeb diet recall and pt report - in progress Intervention: This participant was very receptive. Provided appropriate educational handouts. Discussed the following topics: Importance of starting NPH tonight Safety recs for insulin injections Techniques for injections Rule of 15 for lows review CGM education for self placement Nutrition recommendations, carb counting, pairing macronutrients, spacing carbs throughout the day, meal plan based on patient preferences Recommended servings for carbohydrates at meals and snacks Goals: cigar packer and picker insulin - met wear CGM0- met Eat protein and veggies when feeling extra hungry at time time- met Start NPH tonight- new Eat q 3-4 hours- new Only take Lispro pre meal- new Follow nutrition plan- new Follow-up: KIMBERLY NOVAK will check her CGM tomorrow after first dose of NPH and call her about titration prn. Will then call her first day back in office in 5 days and follow-up in person in two weeks. Will follow CGM remotely very closely and make calls to adjust insulin prn. Helen Lopez RDN, SCARLET Certified Diabetes Care and Disability Case Manager T: [phone] F: [phone] [email or web address] Thank you for this referral
== END ==
LOC: DIET 10:21
PROVIDERS: Referring Provider Obstetrics & Gynecology
DX: O24.414 Gestational diabetes mellitus in pregnancy, insulin controlled (principal); Z3A.27 27 weeks gestation of pregnancy; Z83.3 Family history of diabetes mellitus; Z71.3 Dietary counseling and surveillance
CPT/HCPCS: 97803

== ENCOUNTER → 2024-09-18 10:22 | Outpatient (CLI) | payer BC, OTHER, SELFPAY ==
[2024-09-18 12:29] LABS: Hemoglobin A1C% w Est Avg Glu 5.3 % (4.0-6.0)
== END ==
LOC: LAB 10:22
PROVIDERS: Referring Provider Obstetrics & Gynecology; Visit Provider Obstetrics & Gynecology
DX: O99.212 Obesity complicating pregnancy, second trimester (principal); O24.419 Gestational diabetes mellitus in pregnancy, unspecified control; O24.414 Gestational diabetes mellitus in pregnancy, insulin controlled; Z3A.27 27 weeks gestation of pregnancy; Z83.3 Family history of diabetes mellitus; Z71.3 Dietary counseling and surveillance
CPT/HCPCS: 36415; 83036; 97803

== ENCOUNTER → 2024-09-30 14:27 | Outpatient (CLI) | payer OTHER, SELFPAY ==
--- NOTE | 2024-09-30 14:28 | DI.US.S_ITS ---
PROCEDURE: US OB FOLLOW UP INDICATIONS: Gestational diabetes, growth ultrasound OUTSIDE/PRIOR DATING DATA: Last menstrual period (LMP): 03/11/24. LMP-based estimated date of delivery (ELIAN): 12/16/24. First dating scan (date and location): NA. Estimated date of delivery (ELIAN) from first dating scan: NA The calculations are made using the working ELIAN of 12/16/24. TECHNIQUE: Real-time scanning was performed of the fetus, with image documentation and biometric measurements. Endovaginal scanning: For improved cervical detail COMPARISON: None. FINDINGS: General: A single living intrauterine gestation is present. Presentation: Vertex. Placenta: Placental position is anterior to the right , without previa. Amniotic fluid index: 12.5 cm, normal range is 5-24 cm. Single deepest vertical pocket is 5.3 cm. heart rate: 150 beats per minute. Maternal cervical canal: Closed and 4.7 cm long. Normal lower limit is 2.5 cm. biometrics: Biparietal diameter: 7.2 cm, 28 weeks six days Head circumference: 27.1 cm, 29 weeks four days Abdominal circumference: 24.8 cm, 29 weeks 0 days Femur length: 5.3 cm, 28 weeks one day Clinically estimated gestational age: 29 weeks 0 days Composite gestational age from present scan: 28 weeks six days Estimated weight and percentile: 1287 g, 30th percentile IMPRESSION: Single live intrauterine with estimated weight at the 30th percentile. Composite gestational age is in good agreement with the clinically assigned gestational age, behind by one day. Normal amniotic fluid volume and closed cervix. We strive to produce accurate, complete, and clear reports of imaging services. To assist us in improving patient care, this report was composed using standard report templates and voice recognition software. Therefore, it may contain abnormal punctuation, insertions and/or omissions. Occasional wrong-word or sound-alike substitutions may occur. Though we review the report and make efforts to correct it, we do recommend that the report be read carefully in proper context to recognize any text inaccuracies. Dictated by: Sabrina Quintana M.D. on 09/30/2024 at 15:48 Approved by: Sabrina Quintana M.D. on 09/30/2024 at 15:51
== END ==
PROVIDERS: Referring Provider Obstetrics & Gynecology; Visit Provider Obstetrics & Gynecology
DX: O99.213 Obesity complicating pregnancy, third trimester (principal); O24.419 Gestational diabetes mellitus in pregnancy, unspecified control; Z3A.28 28 weeks gestation of pregnancy
CPT/HCPCS: 76816

== ENCOUNTER → 2024-10-03 16:11 | Outpatient (CLI) | payer OTHER, SELFPAY ==
--- NOTE | 2024-10-03 17:18 | DIAB.GDFU ---
Follow-up Gestational Diabetes Assessment Name: Yin Cooley Date: 10/03/24 Time: 415-5p Dx: Gestational Diabetes Provider: Vladimir ELIAN: 12/16/2024 Weeks: 29 Yin presents for GDM visit, accompanied by her partner Carlie. No previous GDM dx. Endorses significant T2DM family history with mother, brother, and both sets of grandparents. Recent US indicates 30th percentile for wt and normal [place] at 12.5cm Reports taking 20u mealtime insulin and 25u NPH. A few lows, which she is unsure why this occurred. Possibly waiting too long to eat? Too much insulin taken? Asked her to document info in the farida regarding these events. Reports reduced appetite lately. Does not eat much mid day. Then has pretty high carb dinners with 20u insulin, resulting in elevations most nights. Diet Recall: Wakes at 8am 10-11a: eggs, veggies, 1.5 tortillas flour sn: nothing or fruit 5-10p: veggies, protein and 1c rice +/- toast and beans OR 3 pieces pizza sn: nothing or fruit before midnight water no sugar beverages naps 11a/12p to 2p Anthropometrics: Ht: 64 Wt: 201# 09/30/24 199# 09/09/24 Prepregnancy wt: 180# Physical Activity: Walks child to/from school. 20 min walk BID. Self-Monitoring Blood Glucose: Wearing CGM and some elevated FBG, though most recent have improved. Discouraged snacking late on higher CHO options. Improved time <140mg/dl. Most elevations are after later meal from high CHO intake. FB/22: 110 09/28: 106 09/29: had a low and then tx, no true FBG 09/30: 92 10/01: 89 10/02: 80 10/03: 98 Today TIR: 0% very high 25% >140mg/dl 75% in range 0% low avmg/dl std dev: 29mg/dl variation: 24% GMI: 6.2% Last TIR: 0% very high 42% >140mg/dl 58% in range 0% low avmg/dl std dev: 26mg/dl variation: 18.9% GMI: NA Diabetes Medications: 20u Lispro ac 25u NPH Pertinent Labs: Screen 228mg/dl OGTT: 115 H, 224 H, 228 H, 177 H Nutrition Rx: Carbohydrates: start with 30g at each meal/snack after insulin therapy Meal: 45-g lunch and dinner; 30g breakfast Snack: 15-30g Nutrition Diagnosis: Altered nutrition related lab value r/t GDM dx aeb recent OGTT Excessive CHO intake r/t difficulty with cravings r/t long period of fasting mid day aeb diet recall and pt report -new Intervention: This participant was very receptive. Provided appropriate educational handouts. Discussed the following topics: Review of Rule of 15 for treating lows Medication management: increase meal time insulin at later meal or if CHO portions are larger, will continue to watch FBG Try to eat something mid day, ie protein shake Avoid high CHO at dinner or increase insulin dose at those meals Recommended servings for carbohydrates at meals and snacks Goals: Start NPH tonight- met Eat q 3-4 hours- in progress Only take Lispro pre meal- met Follow nutrition plan- in progress Document FBG in farida- new Try 23-25u at dinner meal- new Try adding protein shake at 1-2p- new group exercise manager pineapple juice and glucose tabs- new Follow-up: KIMBERLY NOVAK follow-up in one week by checking CGM and providing for OB and then 1:1 in two weeks. Helen Lopez RDN, SCARLET Certified Diabetes Care and Blueprint Assembler T: [phone] F: [phone] [email or web address] Thank you for this referral
== END ==
LOC: DIET 16:11
PROVIDERS: Referring Provider Obstetrics & Gynecology
DX: O24.414 Gestational diabetes mellitus in pregnancy, insulin controlled (principal); Z71.3 Dietary counseling and surveillance; Z3A.29 29 weeks gestation of pregnancy; Z83.3 Family history of diabetes mellitus
CPT/HCPCS: 97803

== ENCOUNTER → 2024-10-15 16:26 | Outpatient (CLI) | payer OTHER, SELFPAY ==
--- NOTE | 2024-10-17 11:14 | DIAB.GDFU ---
Follow-up Gestational Diabetes Assessment Name: Yin Cooley Date: 10/15/24 Time: 430-520p Dx: Gestational Diabetes Provider: Vladimir ELIAN: 12/16/2024 Weeks: 31 Yin presents for GDM visit, accompanied by her partner Carlie. No previous GDM dx. Endorses significant T2DM family history with mother, brother, and both sets of grandparents. Reports eating more consistently and reduced low BG as a result. Eating TID. Seeing MFM, switched to long acting insulin with meal time vs NPH BID with meal time Keeping chocolate on her for lows. Pineapple juice at home for lows. States she does not think the juice works well. Needs review of rule of 15 for lows. Worries about eating too many CHO. Per diet recall, breakfast high in CHO, causing elevations. Then lunch and dinner often low in CHO. Craving milkshakes, 80-100g CHO per serving. Running out of meal time insulin. Rx needs update. RD messaged OB and OB workgroup with high priority. Anthropometrics: Ht: 64 Wt: 200# 10/07/24 201# 09/30/24 199# 09/09/24 Prepregnancy wt: 180# Physical Activity: Walks child to/from school. 20 min walk BID.-- on hold during spring. Self-Monitoring Blood Glucose: Wearing CGM. BG improving. having some seemingly false lows optometry assistant per CGM. Today TIR: 0% very high 14% >140mg/dl 85% in range 1% low <1% very low avmg/dl std dev: 24mg/dl variation: 21.4% GMI: 6.0% Last TIR: 0% very high 25% >140mg/dl 75% in range 0% low avmg/dl std dev: 29mg/dl variation: 24% GMI: 6.2% Diabetes Medications: 20-25u Lispro ac 25u NPH--- switching to 25u long acting Pertinent Labs: Screen 228mg/dl OGTT: 115 H, 224 H, 228 H, 177 H Nutrition Rx: Carbohydrates: start with 30g at each meal/snack after insulin therapy Meal: 45-g lunch and dinner; 30g breakfast Snack: 15-30g Nutrition Diagnosis: Altered nutrition related lab value r/t GDM dx aeb recent OGTT Excessive CHO intake r/t difficulty with cravings r/t long period of fasting mid day aeb diet recall and pt report -improved Inconsistent energy intake r/t limiting eating and CHO with fear of elevations aeb pt report and diet recall- new Intervention: This participant was very receptive. Provided appropriate educational handouts. Discussed the following topics: Review of Rule of 15 for treating lows Medication management: insulin actions and dosing, potential for needing to reduce mealtime insulin with long acting later in the day Nutrition plan: consistent energy intake and CHO portions at lunch and dinner, reducing CHO and increasing pro and veggies at first meal of the day Homemade low CHO milkshake options Recommended servings for carbohydrates at meals and snacks Goals: Document FBG in far[place]- in progress/continue Try 23-25u at dinner meal- met Try adding protein shake at 1-2p- d/c drilling and production superintendent pineapple juice and glucose tabs- 50% met Reduce CHO at breakfast to 30g- new Try homemade milkshake with low CHO ice cream- new drilling and production superintendent long acting insulin- new Follow-up: KIMBERLY NOVAK follow-up in one week with FRAN and 2 weeks with jatinder RDDiana Lopez RDN, SCARLET Certified Diabetes Care and Pressurization Mechanic T: [phone] F: [phone] [email or web address] Thank you for this referral
== END ==
LOC: DIET 16:27
DX: O24.414 Gestational diabetes mellitus in pregnancy, insulin controlled (principal); Z3A.31 31 weeks gestation of pregnancy; Z71.3 Dietary counseling and surveillance; Z83.3 Family history of diabetes mellitus
CPT/HCPCS: 97803

== ENCOUNTER 2024-10-24 11:06 | Outpatient (CLI) | payer OTHER, SELFPAY | END 2024-10-24 12:00 | disposition home or self-care (01) | LOC: LABOR 12:19 → OB 14:10 | PROVIDERS: Referring Provider Obstetrics & Gynecology; Visit Provider Obstetrics & Gynecology | DX: O24.913 Unspecified diabetes mellitus in pregnancy, third trimester (principal); Z3A.32 32 weeks gestation of pregnancy; Z79.4 Long term (current) use of insulin | CPT/HCPCS: 59025; G0378; G0379 ==

== ENCOUNTER 2024-10-27 12:28 | Outpatient (CLI) | payer OTHER, SELFPAY ==
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
== END 2024-10-27 13:35 | disposition home or self-care (01) ==
LOC: LABOR 13:19 → OB 14:01
PROVIDERS: Referring Provider Obstetrics & Gynecology; Visit Provider Obstetrics & Gynecology
DX: O24.414 Gestational diabetes mellitus in pregnancy, insulin controlled (principal); O99.213 Obesity complicating pregnancy, third trimester; E66.9 Obesity, unspecified; Z3A.36 36 weeks gestation of pregnancy
CPT/HCPCS: 59025; G0378; G0379

== ENCOUNTER → 2024-10-29 15:04 | Outpatient (CLI) | payer OTHER, SELFPAY ==
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
== END ==
PROVIDERS: PCP Obstetrics & Gynecology
DX: O24.414 Gestational diabetes mellitus in pregnancy, insulin controlled (principal); Z3A.33 33 weeks gestation of pregnancy; Z71.3 Dietary counseling and surveillance
CPT/HCPCS: G0108

== ENCOUNTER 2024-10-31 10:29 | Outpatient (CLI) | payer OTHER, SELFPAY | END 2024-10-31 11:30 | disposition home or self-care (01) | LOC: OB 14:54 | PROVIDERS: Referring Provider Obstetrics & Gynecology; Visit Provider Obstetrics & Gynecology | DX: Z36.9 Encounter for antenatal screening, unspecified (principal) | CPT/HCPCS: 59025; G0378; G0379 ==

== ENCOUNTER 2024-11-03 10:35 | Outpatient (CLI) | payer OTHER, SELFPAY ==
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
== END 2024-11-03 11:15 | disposition home or self-care (01) ==
LOC: LABOR 10:43 → OB 14:20
PROVIDERS: Referring Provider Obstetrics & Gynecology; Visit Provider Obstetrics & Gynecology
DX: Z36.9 Encounter for antenatal screening, unspecified (principal)
CPT/HCPCS: 59025; G0378; G0379

== ENCOUNTER 2024-11-05 13:38 | Outpatient (CLI) | payer OTHER, SELFPAY | END 2024-11-05 14:15 | disposition home or self-care (01) | LOC: LABOR 14:06 → OB 14:27 | PROVIDERS: Referring Provider Obstetrics & Gynecology; Visit Provider Obstetrics & Gynecology | DX: Z36.9 Encounter for antenatal screening, unspecified (principal) | CPT/HCPCS: 59025; G0378; G0379 ==

== ENCOUNTER 2024-11-10 09:56 | Outpatient (CLI) | payer OTHER, SELFPAY ==
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
== END 2024-11-10 11:43 | disposition home or self-care (01) ==
LOC: LABOR 11:16 → OB 13:20
PROVIDERS: Referring Provider Obstetrics & Gynecology; Visit Provider Obstetrics & Gynecology
DX: O24.414 Gestational diabetes mellitus in pregnancy, insulin controlled (principal); Z3A.34 34 weeks gestation of pregnancy
CPT/HCPCS: 59025; G0378; G0379

== ENCOUNTER → 2024-11-13 11:05 | Outpatient (CLI) | payer OTHER, SELFPAY ==
--- NOTE | 2024-11-13 11:15 | DIAB.GDFU ---
Addendum entered by Helen Lopez 11/28/24 17:46: 11/28/24: Called pt to review BG via phone. CGM reports indicate some elevated FBG and pc readings. Likely would benefit from increasing basal insulin. LVM for pt to return call at her earliest convenience. Presumably she saw MFM last week between our last visit and this week. Plans for induction 38+ weeks per OB notes. Original Note: Follow-up Gestational Diabetes Assessment Name: Yin Cooley Date: 11/13/24 Time: 1110-1405a Dx: Gestational Diabetes Provider: Vladimir ELIAN: 12/16/2024 Weeks: 35 Yin presents for GDM visit, accompanied by her partner Carlie. Ran out of lispro insulin 5 days ago. Postprandial readings the last three days have been elevated. Waiting on provider approval for rx via pharmacy. States she is unsure if this is from MFM or OB at . Asked her to call and find out and coordinate. Plans to update RD tomorrow on insulin access status. Reports plans to 38 week induction. Seeing MFM next week at 36 weeks. States MFM encouraged more aggressive HS insulin titration, 4u. Reports feeling uncomfortable with this titration schedule. Encouraged her to titrated at least 3u if having FBG elevations. Eating very low CHO at some meals in the absence of ac insulin. Also falling asleep early some days and forgetting HS insulin. Diet recall: 10a: eggs, veggies, meat, low CHo tortilla and beans x1c 2-3p: eggs and veggies with 8oz milk 8p: nothing or 1c noodles OR cheese +/- fruit water Plans to breastfeed. h/o 8 month nursing daughter. Anthropometrics: Ht: 64 Wt: 204# 11/05/24 200# 10/24/24 200# 10/07/24 201# 09/30/24 199# 09/09/24 Prepregnancy wt: 180# Self-Monitoring Blood Glucose: Improved TIR since last visit. Last few days FBG have been 85-115mg/dl, with most >95mg/dl. Last three days pc readings 140-160s. Previous 2 days pc readings mostly in range. Missing CGM data prior to that. Today TIR: 0% very high 13% >140mg/dl 87% in range 0% low 0% very low avmg/dl std dev: 24mg/dl variation: 21.2% GMI: % Last TIR: 0% very high 29% >140mg/dl 71% in range 0% low <1% very low avmg/dl std dev: 28mg/dl variation: 21.9% GMI: 6.4% Diabetes Medications: 40u Lispro ac--- none currently 44u Lantus Pertinent Labs: Screen 228mg/dl OGTT: 115 H, 224 H, 228 H, 177 H Nutrition Rx: Carbohydrates Meal: 45-g lunch and dinner; 30g breakfast Snack: 15-30g Nutrition Diagnosis: Altered nutrition related lab value r/t GDM dx aeb recent OGTT Excessive CHO intake r/t nutrition knowledge deficit aeb diet recall and pt report - improved Predicted inadequate CHO intake for r/t limiting due to elevated BG aeb pt report and CGM results- new Intervention: This participant was very receptive. Provided appropriate educational handouts. Discussed the following topics: Titrating basal insulin Troubleshooting lispro access Recommended servings for carbohydrates at meals and snacks Recent blood sugar results and impact of food and hormones Review of macronutrient recommendations during Benefits, resources, and nutrition for recommendations for nutrition and physical activity recommendations for T2DM risk reduction? - OGTT at 6-12 weeks - Checking blood sugars twice per week (goal: fasting <100 mg/dL and 2 hour pc <140 mg/dL) until 6 week check-up - HgA1c q 1-3 years. Goals: Reduce CHO at breakfast to 30g- met Try homemade milkshake with low CHO ice cream- in progress event set up specialist long acting insulin- met Increase Lantus tonight to 28u- met Increase basal insulin by 2-3u q 2-3 days until <95mg/dl- met Increase to 47u tonight- new [facility] pharmacy today about lispro- new Message OB/MFM about lispro- new update RD tomorrow- new Eat CHo with each meal after starting lispro again- new Follow-up: KIMBERLY NOVAK follow-up in two weeks via phone prn (RD will review CGM data remotely and call prn) and with MFM next week. Helen Lopez, KIMBERLY, SCARLET Certified Diabetes Care and Loop Tender T: [phone] F: [phone] [email or web address] Thank you for this referral
== END ==
LOC: DIET 11:08
DX: O24.414 Gestational diabetes mellitus in pregnancy, insulin controlled (principal); Z3A.35 35 weeks gestation of pregnancy
CPT/HCPCS: 97803

== ENCOUNTER 2024-11-13 12:49 | Outpatient (CLI) | payer OTHER, SELFPAY | END 2024-11-13 13:38 | disposition home or self-care (01) | LOC: LABOR 13:29 → OB 14:57 | PROVIDERS: PCP Obstetrics & Gynecology; Referring Provider Obstetrics & Gynecology; Visit Provider Obstetrics & Gynecology | DX: O24.913 Unspecified diabetes mellitus in pregnancy, third trimester (principal); Z3A.35 35 weeks gestation of pregnancy; Z79.4 Long term (current) use of insulin | CPT/HCPCS: 59025; 97803; G0378; G0379 ==

== ENCOUNTER → 2024-11-14 07:12 | Outpatient (CLI) | payer OTHER, SELFPAY ==
--- NOTE | 2024-11-14 07:13 | DI.US.S_ITS ---
PROCEDURE: US OB FOLLOW UP INDICATIONS: Interval growth ultrasound for gestational DM OUTSIDE/PRIOR DATING DATA: The calculations are made using the ELIAN of 12/16/2024. TECHNIQUE: Real-time scanning was performed of the fetus, with image documentation and biometric measurements. Endovaginal scanning: Not performed COMPARISON: [facility], , OB FOLLOW UP, 09/30/2024, 14:33. FINDINGS: General: A single living intrauterine gestation is present. Presentation: Vertex. Placenta: Placental position is anterior , without previa. Amniotic fluid index: 8.7 cm, normal range is 5-24 cm. Single deepest vertical pocket is 4.7 cm. heart rate: 135 beats per minute. Maternal cervical canal: Not evaluated biometrics: Biparietal diameter: 8.7 cm, 35 weeks 0 days Head circumference: 31.5 cm, 35 weeks 2 days Abdominal circumference: 32.5 cm, 36 weeks 3 days Femur length: 6.9 cm, 35 weeks 2 days Clinically estimated gestational age: 35 weeks 3 days Composite gestational age from present scan: 35 weeks 4 days Estimated weight and percentile: 2781 g, 61st percentile Other: Probable single nuchal cord. IMPRESSION: 1. Single live intrauterine consistent with 35 weeks and 4 days. 2. Estimated weight is in the 61st percentile. 3. Amniotic fluid index on the lower range of normal measuring 8.7 cm. 4. Probable single nuchal cord. We strive to produce accurate, complete, and clear reports of imaging services. To assist us in improving patient care, this report was composed using standard report templates and voice recognition software. Therefore, it may contain abnormal punctuation, insertions and/or omissions. Occasional wrong-word or sound-alike substitutions may occur. Though we review the report and make efforts to correct it, we do recommend that the report be read carefully in proper context to recognize any text inaccuracies. Dictated by: Marin Villalobos M.D. on 11/14/2024 at 9:22 Approved by: Marin Villalobos M.D. on 11/14/2024 at 9:24
== END ==
LOC: US 07:12
PROVIDERS: PCP Obstetrics & Gynecology; Referring Provider Obstetrics & Gynecology; Visit Provider Obstetrics & Gynecology
DX: O24.419 Gestational diabetes mellitus in pregnancy, unspecified control (principal); Z3A.35 35 weeks gestation of pregnancy
CPT/HCPCS: 76816; 87653

== ENCOUNTER → 2024-11-14 10:07 | Outpatient (CLI) | payer OTHER, SELFPAY ==
[2024-11-16 11:34] LABS: Strep Grp B PCR NEG for Grp B Strep
== END ==
LOC: LAB 10:11
PROVIDERS: PCP Obstetrics & Gynecology; Visit Provider Obstetrics & Gynecology
DX: Z34.03 Encounter for supervision of normal first pregnancy, third trimester (principal)
CPT/HCPCS: 87653

== ENCOUNTER 2024-11-17 15:04 | Outpatient (CLI) | payer OTHER, SELFPAY | END 2024-11-17 15:40 | disposition home or self-care (01) | LOC: LABOR 15:43 → OB 11-18 06:19 | PROVIDERS: PCP Obstetrics & Gynecology; Referring Provider Family Medicine; Visit Provider Family Medicine | DX: O24.913 Unspecified diabetes mellitus in pregnancy, third trimester (principal); Z3A.35 35 weeks gestation of pregnancy; Z79.4 Long term (current) use of insulin | CPT/HCPCS: 59025; G0378; G0379 ==

== ENCOUNTER 2024-11-20 14:58 | Outpatient (CLI) | payer OTHER, SELFPAY | END 2024-11-20 16:20 | disposition home or self-care (01) | LOC: OB 11-21 07:19 | PROVIDERS: PCP Obstetrics & Gynecology; Referring Provider Obstetrics & Gynecology; Visit Provider Obstetrics & Gynecology | DX: O24.913 Unspecified diabetes mellitus in pregnancy, third trimester (principal); Z3A.36 36 weeks gestation of pregnancy; Z79.4 Long term (current) use of insulin | CPT/HCPCS: 59025; 84112; G0378; G0379 ==

== ENCOUNTER 2024-11-25 14:10 | Outpatient (CLI) | payer OTHER, SELFPAY | END 2024-11-25 14:54 | disposition home or self-care (01) | LOC: LABOR 14:19 → OB 11-26 06:39 | PROVIDERS: Referring Provider Obstetrics & Gynecology; Visit Provider Obstetrics & Gynecology | DX: O36.8130 Decreased fetal movements, third trimester, not applicable or unspecified (principal); O24.913 Unspecified diabetes mellitus in pregnancy, third trimester; Z3A.37 37 weeks gestation of pregnancy; Z79.4 Long term (current) use of insulin | CPT/HCPCS: 59025; G0378; G0379 ==

== ENCOUNTER 2024-11-29 15:11 | Outpatient (CLI) | payer OTHER, SELFPAY | END 2024-11-29 16:52 | disposition home or self-care (01) | LOC: LABOR 15:26 → OB 12-02 14:40 | PROVIDERS: Referring Provider Obstetrics & Gynecology; Visit Provider Obstetrics & Gynecology | DX: O24.913 Unspecified diabetes mellitus in pregnancy, third trimester (principal); Z3A.37 37 weeks gestation of pregnancy; Z79.4 Long term (current) use of insulin | CPT/HCPCS: 59025; 59050; G0378; G0379 ==

== ENCOUNTER 2024-12-03 20:08 | Inpatient (IN) | payer OTHER, SELFPAY ==
[2024-12-03 20:45] VITALS: BP 121/70
[2024-12-03 21:15] LABS: Add Manual Diff / Slide Review NO; Basophils Absolute Auto 0 /uL (0-100); Basophils Percent Auto 0.4 % (0-2); Eosinophils Absolute Auto 100 /uL (0-450); Eosinophils Percent Auto 0.5 % (2-4); Hematocrit 33.9 % (36-46); Hemoglobin 12.1 g/dL (12.0-16.0); Lymphocytes Absolute Auto 1900 /uL (1100-4500); Lymphocytes Percent Auto 17.9 % (25-40); Mean Corpuscular HGB Conc 35.7 % (30-36); Mean Corpuscular Hemoglobin 31.6 PG (26-34); Mean Corpuscular Volume 88.4 fL (80-100); Monocytes Absolute Auto 600 /uL (0-900); Monocytes Percent Auto 5.6 % (3-14); Neutrophils Absolute Auto 8100 /uL (1500-7000); Neutrophils Percent Auto 75.6 % (50-75); Platelet Count 258 X10^3/uL (150-400); Red Blood Cell Count 3.83 X10^6/uL (4.0-5.2); Red Cell Distribution Width 13.4 % (11.6-14.8); White Blood Cell Count 10.7 X10^3/uL (4.5-11.0)
[2024-12-03 21:27] LABS: Alanine Aminotransferase 14 IU/L (<35); Albumin 3.8 g/dL (3.5-5.0); Albumin Globulin Ratio 1.2 (1.0-2.8); Alkaline Phosphatase 100 U/L (38-126); Aspartate Aminotransferase 22 IU/L (14-36); BUN Creatinine Ratio 9.9 (6-22); Bilirubin Total 0.6 mg/dL (0.2-1.3); Blood Urea Nitrogen 10 mg/dL (7-17); Calcium 9.5 mg/dL (8.4-10.2); Carbon Dioxide 20 mmol/L (22-32); Chloride 105 mmol/L (98-107); Estimated Glomerular Filt Rate > 60 mL/min (>60); Globulin 3.3 g/dL (1.7-4.1); Glucose 106 mg/dL (70-99); HEMOLYSIS < 15 (0-50); Potassium 3.8 mmol/L (3.4-5.1); Sodium 136 mmol/L (137-145); Total Protein 7.1 g/dL (6.3-8.2)
[2024-12-03] MEDS: miSOPROStoL 25 MCG TABLET 50 MCG PO (22:20)
[2024-12-04] MEDS: ACETAMINOPHEN 325 MG TABLET 650 MG PO (02:07)
[2024-12-04] MEDS: miSOPROStoL 25 MCG TABLET 50 MCG PO (04:23)
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
[2024-12-04] MEDS: INSULIN LISPRO 100 UNIT/ML 3ML VIAL 30 UNIT SUBCUT (08:02)
[2024-12-04 08:05] VITALS: BP 121/70; PULSE 74; RESP 17; TEMP 36.9
[2024-12-04] MEDS: LACTATED RINGERS 1,000 ML 100 ML IV ×2 (10:04→16:56)
[2024-12-04] MEDS: OXYTOCIN PREMIX 30 UNIT/500 ML PLAST..BAG IV (10:04)
--- NOTE | 2024-12-04 12:19 | PM.AN.REGBLK ---
Regional Block Pre-procedure Procedure: Continuous Lumbar Epidural for L&D (with dural puncture) Attending OB provider: Kole Gilbert PMH/ROS narrative: 34yo female in early labor requesting epidural. Reports pain 3-4 with some contractions and appears uncomfortable. See pre-anesthesia evaluation for further details. ASA Class: II Labs: Hct 33.9 % (36-46) L 12/03/24 21:00 Plt Count 258 X10^3/uL (150-400) 12/03/24 21:00 Medications: Current Medications Generic Name Dose Route Start Last Admin Trade Name Freq PRN Reason Stop Dose Admin Carboprost Tromethamine 250 mcg 12/03/24 20:21 Carboprost 250 Mcg/Ml Ampul IM Q90M PRN Bleeding Diphenhydramine HCl 25 mg 12/04/24 12:18 Diphenhydramine 50 Mg/Ml Vial IV Q10M PRN Pruritis Ephedrine Sulfate 10 mg 12/04/24 12:18 Ephedrine 50 Mg/Ml Vial IV Q5M PRN Blood pressure decrease more than 20% of baseline. Fentanyl 50 mcg 12/03/24 20:21 Fentanyl 100 Mcg/2 Ml Inj IV Q1H PRN Pain, Moderate (4-6) Oxytocin/Lactated Ringer's 30 unit in 500 mls @ 200 mls/hr 12/03/24 20:21 Oxytocin Premix IV CONT PRN Bleeding Protocol Tranexamic Acid 1,000 mg/ 100 mls @ 600 mls/hr 12/03/24 20:21 Sodium Chloride IV NOW PRN Bleeding Oxytocin/Lactated Ringer's 30 unit in 500 mls @ 2 mls/hr 12/04/24 08:06 12/04/24 10:04 Oxytocin Premix IV 2 milliunit/min TITRATE GIORGIO 2 mls/hr Administration Protocol 2 MILLIUNIT/MIN FENT 2MCG/ML BUPIV 0.125% EPI 200 mcg in 100 mls @ 6 mls/hr 12/04/24 12:30 Fentanyl/Bupiv/Ns 2mcg/Ml - 0.125% EPIDURAL CONT GIORGIO Lidocaine HCl 20 ml 12/03/24 20:21 Lidocaine 1% 20 Ml INJ INTRA-OP PRN Post Delivery Methylergonovine Maleate 0.2 mg 12/03/24 20:21 Methylergonovine 0.2 Mg/Ml Vial IM NOW PRN Bleeding Methylergonovine Maleate 0.2 mg 12/03/24 20:21 Methylergonovine 0.2 Mg Tablet PO Q6HR PRN Heavy Bleeding Misoprostol 400 mcg 12/03/24 20:21 Misoprostol 200 Mcg Tablet SL NOW PRN Bleeding Misoprostol 800 mcg 12/03/24 20:21 Misoprostol 200 Mcg Tablet OH NOW PRN Bleeding Misoprostol 50 mcg 12/04/24 04:30 12/04/24 04:23 Misoprostol 25 Mcg Tablet PO 50 mcg Q6H GIORGIO Administration Nalbuphine HCl 2.5 mg 12/04/24 12:18 Nalbuphine 20 Mg/Ml Ampul IV Q10M PRN Pruritis Naloxone HCl 0.2 mg 12/03/24 20:21 Naloxone 0.4 Mg/Ml Vial IV Q2MIN PRN Opiate Reversal Ondansetron HCl 4 mg 12/03/24 20:21 Ondansetron 4 Mg/2 Ml Inj IV Q4HR PRN Nausea And Vomiting Oxytocin 10 unit 12/03/24 20:21 Oxytocin 10 Unit/Ml Vial IM NOW PRN Bleeding Zolpidem Tartrate 5 mg 12/03/24 20:21 Zolpidem 5 Mg Tablet PO BEDTIME PRN Sleep Allergies: Allergies Allergy/AdvReac Type Severity Reaction Status Date / Time ibuprofen AdvReac Severe Acute Verified 12/03/24 20:47 Kidney Injury Procedure Insertion date: 12/04/24 Insertion time: 11:13 Prep/Local: 1% lidocaine (Chloraprep) Interspace: L3-4 (required two attempts, first at L4-5) Patient position: sitting Needle: 18 gauge Edson (with 27g Pencan needle for dural puncture) Loss of resistance with: saline JU at (cm): 7 (7.5 cm) Catheter placed at SKIN (cm): 14 Catheter in SPACE (cm): 7 Insertion: No CSF, No Blood, No Paresthesia with insertion, No Paresthesia with injection and No Test dose reaction Initial Medications TEST DOSE time: 11:15 TEST DOSE: 1.5% lidocaine with epinephrine 1:200k (mL): 3 BOLUS DOSE time: 11:17 BOLUS DOSE (mL): 2 BOLUS DOSE med: other (same as test dose) Infusion INFUSION: 0.125% bupivacaine and with fentanyl 2 mcg/mL Initial rate (mL/hr): 8 Subsequent interventions: Pt was very anxious. During first attempt at L4-5, pt kept complaining about sharp L hip pain. Moved to L3-4; pt had no concerns or complaints during that placement. Reported continued L hip pain after epidural procedure finished, but this seemed to be resolving with the epidural; pt reassured. Post-procedure Anesthesia date START: 12/04/24 Anesthesia time START: 10:54 Anesthesia date END: 12/05/24 Anesthesia time END: 00:00 Post-procedure Anesthesia Assessment: Yes CV function: HR/BP stable, Yes Resp function: RR/sat/airway adequate, Yes Post-op hydration adequate, Yes Pain control adequate, Yes Nausea & vomiting absent, Yes Temperature > 36 C, Yes Mental status appropriate and No Anesthesia complications
[2024-12-04] MEDS: diazePAM 10 MG/2 ML SYRINGE 8 MG IM (13:11)
--- NOTE | 2024-12-04 18:05 | PM.OBPNLAB ---
Date/Time Date Patient Seen: 12/04/24 Time Patient Seen: 18:05 Pain Control Pain control: tolerating well and epidural Pelvic Exam Dilation (cm): 3 Effacement (%): 50 station: -1 Amniotic membrane status: Ruptured (AROM clear 1800) Contractions Contractions on admission: none Monitor mode: External Pitocin rate (mU/min): 20 Contraction frequency (min): 6 Contraction duration (min): 1 Contraction pattern: Irregular Contraction phase: Resting Contraction intensity: Mild Status status: Category l Heart Rate Baseline: 140 Monitor Accelerations: Absent Monitor Decelerations: Absent Monitor Variability: Moderate (Episodes on minimal variability c/w sleep/wake cycles) Assessment and Plan Assessment: induction ongoing Plan: continuous present management Comments: Anticipate . BS's have all been within range prior to and since becoming NPO w/ start of pitocin and KEVIN placement.
[2024-12-04] MEDS: FENT 2MCG/ML BUPIV 0.125% EPI 200 MCG/100 ML PLAST..BAG 6 MCG EPIDURAL (18:10)
[2024-12-04] MEDS: NALBUPHINE 20 MG/ML AMPUL 2.5 MG IV (18:10)
[2024-12-04] MEDS: ZOLPIDEM 5 MG TABLET PO (20:58)
[2024-12-04] MEDS: INSULIN GLARGINE 100 UNIT/ML 3ML PEN 50 UNIT SUBCUT (20:58)
--- NOTE | 2024-12-05 00:20 | PM.OBPRVD ---
Labor & Delivery Delivery date: 12/05/24 Delivery Time: 00:00 Intrapartal Events: None Cervical ripening method: per misoprostal protocol Induction method: per pitocin protocol Delivery augmentation: rupture of membranes Delivery monitor: external FHT and external uterine Route of delivery: Indication for instrumentation: other Episiotomy description: None L&D Laceration Description: None Estimated blood loss (mL): 100 Anesthesia Type: Epidural Complications: None Narrative: Following a 5 minute 2nd stage, the patient delivered spontaneously over an intact perineum a viable female who was vigorous at . No shoulder dystocia was encountered but an easily reducible nuchal cord was noted at the time of delivery. Shoulders delivered without incident and skin to skin contact initiated immediately. Delayed cord clamping was performed and once the umbilical cord was doubly clamped and cut, a specimen of cord blood was obtained for routine studies. The placenta was delivered spontaneously with gentle cord traction and suprapubic countertraction. Intravenous Pitocin initiated immediately and post delivery bleeding rapidly brought under control. Placenta was inspected and found to be intact with a centrally inserting three-vessel cord. Inspection perineum and vaginal introitus demonstrated no abrasions or lacerations. Sponge and needle counts prior to and after delivery were correct and the delivery process itself was well tolerated by both mother and baby. [place] Baby 1: Infant gender: Female Presentation: vertex Position: Left Occiput Anterior Placenta delivery description: Spontaneous Cord Vessel Description: 3 Vessels score (1 min): 8 score (5 min): 9 weight: 6 lb 9.434 oz Plan for aftercare: Routine care
[2024-12-05] MEDS: ACETAMINOPHEN 325 MG TABLET 650 MG PO ×3 (02:54→14:29)
[2024-12-05] MEDS: LIDOCAINE 5% PATCH 1 EACH TOP (04:35)
[2024-12-05] MEDS: OXYCODONE IR 5 MG TABLET PO ×4 (04:35→18:25)
[2024-12-05 07:36] LABS: Add Manual Diff / Slide Review NO; Basophils Absolute Auto 0 /uL (0-100); Basophils Percent Auto 0.3 % (0-2); Eosinophils Absolute Auto 100 /uL (0-450); Eosinophils Percent Auto 0.4 % (2-4); Hematocrit 32.2 % (36-46); Hemoglobin 11.6 g/dL (12.0-16.0); Lymphocytes Absolute Auto 2000 /uL (1100-4500); Lymphocytes Percent Auto 14.8 % (25-40); Mean Corpuscular HGB Conc 36.1 % (30-36); Mean Corpuscular Hemoglobin 31.5 PG (26-34); Mean Corpuscular Volume 87.3 fL (80-100); Monocytes Absolute Auto 800 /uL (0-900); Monocytes Percent Auto 5.7 % (3-14); Neutrophils Absolute Auto 10800 /uL (1500-7000); Neutrophils Percent Auto 78.8 % (50-75); Platelet Count 236 X10^3/uL (150-400); Red Blood Cell Count 3.69 X10^6/uL (4.0-5.2); Red Cell Distribution Width 13.2 % (11.6-14.8); White Blood Cell Count 13.7 X10^3/uL (4.5-11.0)
[2024-12-05] MEDS: DOCUSATE 100 MG CAPSULE PO (08:24)
[2024-12-05] MEDS: KETOROLAC 30 MG/ML VIAL IV ×2 (09:32→15:32)
--- NOTE | 2024-12-05 16:48 | PM.OBDS.1 ---
Discharge Providers Provider Date of admission: 12/03/24 20:08 Discharge Date: 12/05/24 Primary care physician: Doctor Yarely MD Consults: 12/03/24 20:21 Consult to Anesthesiology Urgent Comment: Consulting Provider: Kole Gilbert Reason for consultation: Epidural Has provider been notified: No 12/06/24 00:12 Consult to Manager Fixed Income Routine Comment: Discharge provider: Kole Gilbert MD Summary Hospital Course Date Patient Seen: 12/05/24 Time Patient Seen: 16:48 Diagnoses: Intrauterine gestation, 38+ 3 weeks, delivered by spontaneous vaginal Gestational diabetes, type A2 GBS negative status Hospital Course: Patient was admitted for Pitocin induction on the morning of 12/04/2024 and subsequently had a epidural placed in labor. She delivered spontaneously at 12:00 a.m., 12/05/2024 a viable female infant with Apgars of 8/9 weight of 6 lb 9.43 oz. following delivery both mother and baby did extremely well with the mother experiencing prompt return of bowel and bladder function, she is ambulating independently, tolerating regular diet, and her pain is well relieved with oral pain medication. She will be discharged at this time to home in an afebrile normotensive condition after counseling regarding precautionary symptoms, limitations activity, medications, and plans for follow-up will be in 6 weeks. Medications at discharge will include oxycodone 5 mg, 1 tab p.o. Q 4-6 hours as needed for pain, dispense 15 with no refills and norethindrone 0.35 mg p.o. q.d. for oral contraception while . All blood sugars following delivery were normal and the patient will have a 75 g 2 hour GTT performed at 12 weeks to rule out type 2 diabetes. Peripartum Data Infant Delivery Method: Natural Vaginal Laceration Description: None Episiotomy description: None Procedures: Continuous lumbar epidural Spontaneous vaginal delivery complications: none [place] 1: Gender: Female Disposition of : home Status at Discharge Cognitive/behavioral status at discharge: oriented Functional status at discharge: independent ambulation Overall status at discharge: patient is progressing back to baseline Time Spent with Patient Time attestation: Total time spent providing and/or coordinating discharge services: Time spent: Less than 30 minutes Objective Labs 12/05/24 07:32 12/03/24 21:00 Labs: Laboratory Results - last 24 hr 12/05/24 07:32 WBC 13.7 H RBC 3.69 L Hgb 11.6 L Hct 32.2 L MCV 87.3 MCH 31.5 MCHC 36.1 H RDW 13.2 Plt Count 236 Neut % (Auto) 78.8 H Lymph % (Auto) 14.8 L Tift % (Auto) 5.7 Eos % (Auto) 0.4 L Baso % (Auto) 0.3 Neut # (Auto) 72644 H Lymph # (Auto) 2000 Tift # (Auto) 800 Eos # (Auto) 100 Baso # (Auto) 0 Exam Const General: cooperative and comfortable Nutritional Appearance: average body habitus Orientation: alert and oriented x3 HENMT Head: normal to inspection, normocephalic and atraumatic Ears: hearing grossly normal bilaterally Face and sinus: face symmetric Eyes General: appearance normal, both eyes and all related structures Conjunctivae: conjunctivae normal Sclera: sclerae normal EOM: EOM intact bilaterally Neck Neck: normal visual inspection Resp Effort & Inspection: normal respiratory effort and able to speak in complete sentences Auscultation: clear to auscultation bilaterally Cardio Rate: regular rate Rhythm: regular rhythm Heart Sounds: S1 normal, S2 normal and no murmurs GI Inspection: normal to inspection Palpation: soft and no hepatosplenomegaly External Female Exam: other (No significant bleeding noted) Extrem General: no calf tenderness Right lower extremity: normal to inspection Psych Appearance: grossly normal Mental Status: mental status grossly normal Speech and Movement: speech and movement normal Mood: congruent mood Affect: normal affect Attitude: cooperative Thought Process: normal Thought Content: normal Judgment: judgment good Discharge Plan Discharge Plan Patient Disposition: Home Provider Discharge Comment: Please review the written instructions you received when you were discharged from the hospital. Your follow-up will be scheduled for 6 weeks after delivery and I look forward to seeing you then. If however you have any issues in the meantime, concerns, or questions, please contact me either through the office phone at [phone], or via the patient portal. Discharge orders & Medications Prescriptions: New oxycodone 5 mg Tablet 5 mg PO Q4-6H PRN (Reason: Pain, Moderate (4-6)) Qty: 15 0RF norethindrone (contraceptive) 0.35 mg tablet 0.35 mg PO DAILY Qty: 84 4RF Continued [id number] oil 400 mcg-35 mg -25 mg-5 mg tablet,chewable 1 tab PO DAILY Discontinued insulin lispro 100 unit/mL insulin pen 25 unit SUBCUT .ac meals Qty: 15 4RF Rx Instructions: Inject 10 units before breakfast/lunch and dinner insulin NPH isoph U-100 human 100 unit/mL (3 mL) insulin pen 25 unit SUBCUT BEDTIME Qty: 15 2RF No Action (DME) blood-glucose meter [Blood Glucose Monitoring] Kit See Rx Instructions .ROUTE .MEDSUPPLY Qty: 1 0RF Rx Instructions: Testing blood surgar 4x daily Fasting and 2 hours after each meal (DME) Dexcom G7 Sensor Device See Rx Instructions .ROUTE .MEDSUPPLY Qty: 3 8RF Rx Instructions: use to check blood sugars and change out every 10 days (DME) Dexcom G7 Resource Paraprofessional Misc See Rx Instructions .Route Qty: 1 6RF Rx Instructions: As directed (DME) lancets Misc See Rx Instructions .ROUTE .MEDSUPPLY Rx Instructions: Testing blood sugar 4x daily Fasting and 2 hours after each meal Medication counseling provided by Pharmacist: No Follow up/Referrals: Doctor Pritchett MD [Primary Care Provider, Medical] Kole Gilbert MD [Physician, PENAL OFFICER] - 6 Weeks Referral Note: Please follow up with Dr. Gilbert for a 6 week appt. on January 16, @ 2:00pm. Discharge Health Status Health Concerns: As you know, gestational diabetes increases your risk of developing type 2 diabetes during the remainder of your life. After your 6 week visit, a 2 hour 75 g carbohydrate glucose tolerance test will need to be performed 12 weeks after delivery to make sure that you do not actually have type 2 diabetes currently. Until then you can stop using the Lantus and lispro. It might be a good idea to check your fastings and 1 hour postprandial blood sugars with the Dexcom as long as she want to make sure that they ultimately go back down to normal. Multidrug resistant organism: No MDRO Diet/Activity/Treatments Diet: Diet as Tolerated Activity: As tolerated Other treatments: Tylenol and/or may be used for additional pain relief. [id number] Tylenol and/or MiraLax may be used as needed for constipation. Skin/Wound/Dressing Care Report to your healthcare provider any signs of infection, such as:: chills, fever, increased pain and unusual drainage Dressing: N/A Visit Report/Discharge Packet Instructions: DI for Labor and Delivery, Vaginal , DI for and Nipple Soreness Stand Alone Forms: Discharge: Care, Patient Portal/API, Stroke Signs & Symptoms Discharge Data Primary Care Provider: Miscellaneous,Doctor
[2024-12-05 18:52] VITALS: BP 115/76; PULSE 70; RESP 15; TEMP 36.9
== END 2024-12-05 20:45 | disposition home or self-care (01) | DRG 560 ==
PROVIDERS: Admitting Provider Obstetrics & Gynecology; Referring Provider Obstetrics & Gynecology; Visit Provider Obstetrics & Gynecology
DX: O24.424 Gestational diabetes mellitus in childbirth, insulin controlled (principal); Z3A.38 38 weeks gestation of pregnancy; Z37.0 Single live birth; O76 Abnormality in fetal heart rate and rhythm complicating labor and delivery
CPT/HCPCS: 59050; 59200; 59409; 80053; 85025; 86850; 86900; 86901; G0379; J1815; J1885; J2300; J2590; J3360